=== PATIENT | male | born 1960 ===

== ENCOUNTER 2017-11-05 06:08 | Observation (INO) | payer OTHER ==
[2017-09-10 06:20] VITALS: BMI 25.8
[2017-11-05] MEDS ORDERED: EPINEPHrine 1 mg/ml (1:1000) Inj ONE (07:27)
[2017-11-05] MEDS ORDERED: Lidocaine 1% w Epi 1:100,000 Inj ONE (07:27)
[2017-11-05] MEDS ORDERED: Bupivacaine 0.5% Inj(30mL) ONE (07:27)
[2017-11-05] MEDS ORDERED: Bacitracin Ointment 30 GM TUBE ONE (07:27)
[2017-11-05] MEDS ORDERED: Lidocaine 1% 20 MG/2 ML PF AMP ONE ×2 (07:28)
[2017-11-05] MEDS ORDERED: Lidocaine Hydrochloride 1% 20 ML ONE (07:29)
[2017-11-05] MEDS ORDERED: Ropivacaine 0.5% 30ML IV ONE (07:43)
[2017-11-05] MEDS ORDERED: Midazolam 2 MG/2 ML VIAL ONE (07:49)
[2017-11-05] MEDS ORDERED: Propofol 10 mg/ml Inj (20 ML) ONE (07:49)
[2017-11-05] MEDS ORDERED: Succinylcholine 200 mg/10 ml Inj IV ONE (07:49)
[2017-11-05] MEDS ORDERED: Rocuronium 10 mg/ml (5 ml) ONE (07:49)
[2017-11-05] MEDS ORDERED: Neostigmine 1:1000 (1 mg/ml) Inj ONE (07:50)
[2017-11-05] MEDS ORDERED: Lactated Ringer's 1,000 ML IV ONE ×3 (08:15→11:30)
--- NOTE | 2017-11-05 08:31 | PCM.ANESB1 ---
Interscalene Block - Brachial Plexus Date of Procedure: 11/05/17 Anesthesiologist: magdaleno Pre-Procedure Diagnosis: djd L shoulder Post-Procedure Diagnosis: same Procedure Performed: Interscalene Block of Brachial Plexus Left - Procedure Interscalene Block of Brachial Plexus: This procedure was explained to the patient that it is for post-operative pain management. Consent was obtained after a thorough discussion with the patient regarding the benefits and possible complications of local anesthetic block of the Brachial Plexus at the Interscalene area. The patient was brought to the Operating Room and standard monitors were applied. Time out was held with the circulating nurse to confirm the correct surgery and appropriate block. After applying Oxygen by nasal cannula and administering IV Sedation, the patient's head was gently rotated away from the _left operative shoulder and the anterior scalene groove was carefully palpated. The ultrasound transducer was then applied to the skin in the transverse plane and the brachial plexus was visualized lateral to the carotid artery and in between the anterior and middle scalene muscles. After identification,the anterior lateral portion of the neck was prepped with Betadine solution three times and Lidocaine 1% was injected subcutaneously for topical analgesia. At this point, a # 22 gauge Stimuplex 2 inches insulated needle was inserted into the interscalene groove and directed in a caudal and midline direction. The needle was inserted lateral to the ultrasound transducer in-plane towards the brachial plexus in a [id number] direction. Needle advancement was performed carefully under direct ultrasound visualization. Nerve stimulator was used and twitched of the affected extremity including the hand brachialis muscles, biceps and the deltoid was obtained at a current of _2.0____MA. After repeated negative aspiration,___1__cc of__0.5___,__ropivicaine were injected and this was followed with __19___cc of _0.5____% _ropivicaine____ . Under ultrasound guidance the local anesthetics were observed surrounding the roots of the brachial plexus. The needle was removed intact and sterile dressing was applied. The patient had stable vital signs, was conscious and in no apparent distress. The patient tolerated the interscalene block of the bracheal plexus well with stable vital signs and was prepared for subsequent surgery.There was no paresthesia during needle placement.
[2017-11-05] MEDS ORDERED: Absorbable Gelatin Sponge Size 100 ONE (11:09)
[2017-11-05] MEDS ORDERED: Thrombin Topical 5,000 Int Units Spray Kit ONE (11:09)
[2017-11-05] MEDS ORDERED: Thrombin Topical 5,000 Int Units Spray Kit TOP ONE (11:45)
[2017-11-05] MEDS ORDERED: Oxycodone/Acetaminophen 5/325 mg Tab PO PRN ×2 (13:00→13:03)
--- NOTE | 2017-11-05 13:44 | RAD ---
PROCEDURE: Radiographs of the Left Shoulder HISTORY: s/p left total shoulder COMPARISON: Preoperative study 09/10/2017. FINDINGS: BONES: Satisfactory position alignment of left shoulder prosthetic components. SOFT TISSUES: Normal. OTHER FINDINGS: None. IMPRESSION: Satisfactory postoperative status.
[2017-11-05] MEDS: Lactated Ringer's 1,000 ML IV SCH ×2 (14:30→22:45)
[2017-11-05] MEDS ORDERED: ceFAZolin 1 GM in Sodium Chloride 0.9% 100 ML IVPB ONE (16:00)
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
--- NOTE | 2017-11-05 23:07 | OP ---
PROCEDURE DATE: 11/05/2017 PREOPERATIVE DIAGNOSES: 1. Left shoulder osteoarthritis. 2. Left shoulder rotator cuff tear. 3. History of prior left shoulder arthroscopy. POSTOPERATIVE DIAGNOSES: 1. Left shoulder osteoarthritis. 2. Left shoulder rotator cuff tear. 3. History of prior left shoulder arthroscopy. PROCEDURE PERFORMED: Left total shoulder arthroplasty. SURGEON: Pool Cunningham MD ECHOMETER ENGINEER: Madhavi Jean PA-C TYPE OF ANESTHESIA: General with scalene block. IV FLUID INTAKE: Crystalloids. ESTIMATED BLOOD LOSS: 300 mL SPECIMEN: None. DRAINS: None. COMPLICATIONS: None. DESCRIPTION OF PROCEDURE: The patient was brought to the operating room and scalene block was established by anesthesia. The patient was then positioned, padded, prepped, and draped in a standard surgical fashion for left shoulder surgery on a beach chair position. He was preadministered 1 g of IV Ancef on a weight-based protocol. The anatomic line was created on the skin with a skin marker. The expected incision was also premarked on the skin, which extended from just proximal to the coracoid process extending distally and laterally approximately 8 to 10 cm. Sharp dissection to the skin controlling bleeders with cautery and then a mixture of sharp and blunt dissection until the deltopectoral interval was established. The cephalic vein was protected. The clavipectoral fascia was then divided, the strap muscles and the attachment to the coracoid were identified. The insertion of the pectoralis was identified just a very superficial portion superiorly of the peg insertion was divided. Proximally, a small portion of CA ligament was also released. The axillary nerve was palpated and protected. All bleeders encountered throughout the surgery were controlled with cautery. The subscapularis lesser and greater tuberosity were identified. The arthrotomy was performed through the subscapularis tendon leaving a small cuff of tissue for later reattachment. As the subscapularis was released #2 FiberWire were placed within for later repair. The capsule was adherent to the posterior aspect of the subscapularis and had to be dissected later in the procedure. Immediately, the arthritic humeral head came into view that had large anterior and especially large inferior osteophytes, they were easily reached and were immediately removed with an osteotome. The insertion of the cuff was identified and preparation was made for an osteotomy of the humeral head, which was performed with a standard 45 degree jig. Two pins were placed in order to hold the jig in place. The osteotomy was performed, additional removal of osteophytes were then subsequently performed more posteroinferiorly and posteriorly with the most difficult. The patient was noted to have tight posterior capsule. A measurement was performed on the back table and a 52-mm head size was chosen. Standard preparation for the stem and the humerus was performed with broaching up to a size 10.5, there was some evidence of cortical purchase with 9 mm and high cortical purchase with the 10, which was able to be seated. Broaching was then performed with care being taken to follow appropriate retroversion of the prosthesis about 30 degrees with constant checks with the alignment guide. Trial prosthesis was seated with a 10.5 and then adapter was placed with first trialling a off-set humeral head that there was some difficulty rotating the head into position, but it was never observed to fit very well, there it was exchanged and a trial of a spherical head was trialled, which was observed to fit more naturally. The trial of the head and neck were then removed and attention was turned to the glenoid. Glenoid was prepared in a standard fashion for 3 peg's components, first the thinner of the glenoid was established and central hole was placed then through appropriate guides superior and inferior peg holes were placed, these were punched to confirm as they are to the adequate depth and trial glenoid was placed. The head and spherical neck were then reapplied and the shoulder was taken to a range of motion was to be excellent and stable. Trial glenoid and head and neck were removed. Final cementing of the prominent glenoid component was performed in a standard fashion with a cement impregnated with gentamicin. The glenoid component with a peg 52 mm diameter. The thrombin was used to keep blood out of the glenoid peg holes, standard hand packing followed by sponge impacting was performed to push the cement deep into the glenoid peg holes prior to placing the permanent implant, which was impacting to its final resting position and kept with manual pressure until the bone cement had hardened. Attention was then returned to the humerus where a noncemented humeral stent component that again it was 2.5 x 10.5 mm diameter distally was impacting to its final resting position and care was taken to follow the same anatomic retroversion. The head and neck had been attached to the same on the back table. Again with the 45-degree adapter and a modular symmetric head, there was 18-mm head height and 52 mm in spherical head diameter. A final reduction was performed and stable implant was to be in excellent position and a good height. The irrigation and closure were performed meticulously, the preplaced #2 FiberWire was used to repair the subscapularis and there was some overlying [id number] #2 FiberWire placed additionally. This repair was observed to be stable. Further irrigation and control of bleeders were performed with cautery and then subcutaneous layer was closed with interrupted 2-0 Vicryl and skin was closed with skin jennifer. The patient tolerated the procedure well. Skin washed and dried. Bacitracin, Xeroform, multiple folded 4 x 4 gauze held with Tegaderm was placed. Arm was placed into sling and swathe. The patient was awoken from general anesthesia and taken to the recovery room, awake, and alert in good condition. Pool Cunningham MD
[2017-11-06] MEDS: Lactated Ringer's 1,000 ML IV SCH
[2017-11-06 07:58] LABS: INR 1.2 (0.9-1.2); PARTIAL THROMBOPLASTIN TIME 30.7 Seconds (25.6-37.1); PROTHROMBIN TIME 13.3 Seconds (9.8-13.1)
[2017-11-06] MEDS: ceFAZolin 1 GM in Sodium Chloride 0.9% 100 ML IVPB SCH ×3 (08:33→16:06)
[2017-11-06] MEDS ORDERED: Sodium Chloride 0.9% 1,000 ML IV SCH ×2 (09:45→11:00)
[2017-11-06 09:59] LABS: BASO % 0.2 % (0.0-2.0); EOS % 0.3 % (0.0-4.0); HEMOGLOBIN 10.1 g/dL (12.0-18.0); LYMPH # 1.2 K/uL (1.0-4.3); LYMPH % 14.7 % (20.0-40.0); MEAN CORPUSCULAR HEMOGLOBIN 28.2 pg (27.0-31.0); MEAN CORPUSCULAR HGB CONC 33.1 g/dL (33.0-37.0); MEAN PLATELET VOLUME 9.8 fl (7.2-11.7); MONO # 0.8 K/uL (0.0-0.8); MONO % 9.8 % (0.0-10.0); RBC 3.59 Mil/uL (4.40-5.90); RED CELL DISTRIBUTION WIDTH 13.2 % (11.5-14.5)
[2017-11-06 10:07] LABS: ALB/GLOB RATIO 1.2 (1.0-2.1); ALBUMIN 3.4 g/dL (3.5-5.0); ALT/SGPT 28 U/L (21-72); AST/SGOT 20 U/L (17-59); BLOOD UREA NITROGEN 19 mg/dl (9-20); CALCIUM 8.9 mg/dL (8.4-10.2); GFR AFRICAN-AMERICAN > 60; GFR NON-AFRICAN AMERICAN > 60
--- NOTE | 2017-11-06 11:14 | CARD ---
APPROVED REPORT EKG Measurement Heart [id number] <Conclusion> Sinus tachycardia Nonspecific ST abnormality Abnormal ECG
[2017-11-06] MEDS ORDERED: Enoxaparin 40 mg Syringe SC SCH (12:30)
--- NOTE | 2017-11-06 14:51 | PCM.RRT ---
<Radha Browning - Last Filed: 11/06/17 14:54> INTERN ARCHITECT Nurse Assessment - Situation INTERN ARCHITECT Responder Arrival Time: 09:30 Location: [address] [place] [address] Room Number: [id number] INTERN ARCHITECT Reason for Call: Tachycardia, Hypotension INTERN ARCHITECT Called By: RN - IV IV Inserted during INTERN ARCHITECT?: No IV Fluids Initiated During INTERN ARCHITECT?: 0.9 Normal Saline 1000 bolus - Respiratory Oxygen Delivery Method: Room Air Received Nebulizer Treatments: No Was the Patient Ventilated with Bag/Mask 100% O2?: No Secretions Suctioned?: No Was the Patient Intubated?: No Was the Patient Placed on a Ventilator?: No - Diagnostic Test Ordered EKG: Yes Chest X-Ray: No CT Scan: No - Stat Labs Ordered INTERN ARCHITECT Stat Labs Ordered: CBC, BMP CPR started during INTERN ARCHITECT?: No - Vital Signs Vital Signs: Rapid Response Vital Sign Blood Pressure 81/50 Pulse Rate 120 Respiratory Rate 20 Temperature 98.3 F Oxygen Saturation 95 - Time INTERN ARCHITECT Ended Time INTERN ARCHITECT Ended: 09:40 - Vital Signs at end of INTERN ARCHITECT Vital Signs at end of INTERN ARCHITECT: Rapid Response End Vital Sign Blood Pressure 115/74 Pulse Rate 114 Respiratory Rate 20 Temperature 98.3 F O2 Sat by Pulse Oximetry 96 - Recommendations INTERN ARCHITECT Level of Care Recommendations: Remain in current setting - Constitutional Appears: No Acute Distress - Head Head Exam: NORMAL INSPECTION - Eyes Eye Exam: EOMI, PERRL - Respiratory Exam Respiratory Exam: Clear to Ausculation Bilateral, NORMAL BREATHING PATTERN. absent: Chest Wall Tenderness - Cardiovascular Exam Cardiovascular Exam: Tachycardia, REGULAR RHYTHM, +S1, +S2 - GI/Abdominal Exam GI & Abdominal Exam: Soft, Normal Bowel Sounds. absent: Distended, Tenderness - Neurological Exam Neurological Exam: Alert, Awake, Oriented x3 - Extremities Exam Extremities Exam: absent: Calf Tenderness Plan - Assessment of Findings&Treatment Plan INTERN ARCHITECT called by RN. 57 yo M with PMH of HTN and Gout with hypotension and tachycardia associated with pale skin. Patient started to doing PT and he felt dizzy. Patient is responsive, able to follow commands, oriented, alert. Patient is POD 1 s/p total Left shoulder replacement. He denies chest pain or abdominal pain, headache, fever, chills, nausea or vomiting. Denies shoulder pain at this time. Initial VS: BP 80/50, HR 121, T 98.3, Sat 94% RA. Final VS: BP 111/76, HR 110, T 98.1, Sat 97% A/P: 57 yo M with hypotension and tachycardia likely secondary to hypovolemia. - accucheck 160 - NS 1L IV bolus - EKG - cbc, cmp - patient remain in current location. <Yenifer Panchal - Last Filed: 11/06/17 19:59> INTERN ARCHITECT Nurse Assessment - Vital Signs Vital Signs: Rapid Response Vital Sign Blood Pressure 81/50 Pulse Rate 120 Respiratory Rate 20 Temperature 98.3 F Oxygen Saturation 95 - Vital Signs at end of INTERN ARCHITECT Vital Signs at end of INTERN ARCHITECT: Rapid Response End Vital Sign Blood Pressure 115/74 Pulse Rate 114 Respiratory Rate 20 Temperature 98.3 F O2 Sat by Pulse Oximetry 96 Attending/Attestation - Attestation I have personally seen and examined this patient.: Yes I have fully participated in the care of the patient.: Yes I have reviewed all pertinent clinical information, including history, physical exam and plan: Yes
--- NOTE | 2017-11-06 16:55 | US ---
PROCEDURE: Right lower extremity venous duplex Doppler. HISTORY: pain on R calf COMPARISON: None available. TECHNIQUE: Common femoral, superficial femoral, popliteal and posterior tibial veins were evaluated. Flow was assessed with color Doppler, compressibility, assessment of phasic flow and augmentation response. FINDINGS: COMMON FEMORAL VEIN: Unremarkable. SUPERFICIAL FEMORAL VEIN: Unremarkable. POPLITEAL VEIN: Unremarkable. POSTERIOR TIBIAL VEIN: Unremarkable. OTHER FINDINGS: None. IMPRESSION: No evidence of deep venous thrombosis in the right lower extremity.
[2017-11-06 17:30] VITALS: BP 109/76; PULSE 103; RESP 20; TEMP 98.6; O2SAT 99
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
== END 2017-11-06 19:10 | disposition home or self-care (01) ==
LOC: H.OPSURG 06:08 → INTOOBSV 12:48 → H.MEDSURG1 12:48
PROVIDERS: ADMIT Internal Medicine; ATTEND Internal Medicine
DX: M19.012 Primary osteoarthritis, left shoulder (principal); M75.102 Unspecified rotator cuff tear or rupture of left shoulder, not specified as traumatic; M1A.9XX0 Chronic gout, unspecified, without tophus (tophi); I95.1 Orthostatic hypotension; E86.9 Volume depletion, unspecified; I10 Essential (primary) hypertension; F41.9 Anxiety disorder, unspecified
CPT/HCPCS: 23472; 36415; 64415; 73030; 80053; 82948; 85025; 85610; 85730; 86850; 86900; 88304; 93005; 93971; 97116; 97163; 97530; G0378; G8978; G8979; J0330; J0690; J1650; J2001; J2250; J2704; J2710; J3010; J7040; J7120